=== PATIENT | female | born 1985 | race Asian ===

== ENCOUNTER 2019-03-25 16:23 | Observation (INO) | payer BC ==
[~2019-03-25] VITALS: Ht 160 cm; Wt 72.0 kg
--- NOTE | 2019-03-25 16:49 | NUR ---
PT AMBULATORY WITH STEADY GAIT FROM TRIAGE TO ROOM. CHANGING INTO GOWN NOW.
--- NOTE | 2019-03-25 16:58 | NUR ---
PT SENT HERE BY OBGYN DR. MEDRANO FOR ECTOPIC . THIS IS HER FIRST - WAS AT OFFICE FOR 8 WEEK CHECK UP. PT DENIES VAGINAL BLEEDING. AT THIS TIME PT DENIES SX- NO PAIN, NO NAUSEA, NO DIZZINESS. PT RESTING ON GURNEY. CONNECTED TO MONITOR. VSS. STATES FAMILY IS ON THEIR WAY.
--- NOTE | 2019-03-25 17:24 | NUR ---
PIV STARTED. BLOOD DRAWN AND SENT TO LAB.
[2019-03-25 17:35] LABS: ALBUMIN 4.1 g/dL (3.4-5.0); ANION GAP 5 mmol/L (5-15); BASOPHILS # (AUTO) 0.02 x10^3/uL (0-0.1); BASOPHILS % (AUTO) 0 % (0-1); CALCIUM 9.3 mg/dL (8.5-10.1); CHLORIDE 109 mmol/L (98-107); EOSINOPHILS # (AUTO) 0.06 x10^3/uL (0-0.4); EOSINOPHILS % (AUTO) 1 % (1-7); LYMPHOCYTES # (AUTO) 1.78 x10^3/uL (1-3.4); LYMPHOCYTES % (AUTO) 20 % (22-44); MD NO; MEAN CORPUSCULAR HEMOGLOBIN 29.5 pg (27.0-34.8); MEAN CORPUSCULAR HGB CONC 34.3 g/dL (32.4-35.8); MEAN CORPUSCULAR VOLUME 85.9 fL (80-100); MEAN PLATELET VOLUME 10.3 fL (7.4-10.4); MONOCYTES # (AUTO) 0.42 x10^3/uL (0.2-0.8); MONOCYTES % (AUTO) 5 % (2-9); NEUTROPHILS # (AUTO) 6.74 x10^3/uL (1.8-6.8); NEUTROPHILS % (AUTO) 75 % (42-75); PLATELET COUNT 213 x10^3/uL (130-400); RED BLOOD COUNT 4.94 x10^6/uL (3.82-5.3); RED CELL DISTRIBUTION WIDTH 13.1 % (9.6-15.2)
--- NOTE | 2019-03-25 17:58 | NUR ---
PT RESTING ON ZARINA. LIEN. VSS. DENIES NEEDS AT THIS TIME. AWARE OF POC.
--- NOTE | 2019-03-25 18:05 | NUR ---
REPORT GIVEN TO LILIA GARCIA.
[2019-03-25] MEDS ORDERED: MIDAZOLAM 1 MG/ML, 2ML ONE (18:44)
[2019-03-25] MEDS ORDERED: FENTANYL PF 100 MCG/2ML ONE (18:44)
--- NOTE | 2019-03-25 18:45 | NUR ---
REPORT RECEIVED FROM LILIA HUNTER.
[2019-03-25] MEDS ORDERED: BUPIVACAINE/PF 0.25% ONE (18:46)
[2019-03-25] MEDS ORDERED: EPINEPHRINE 1 MG/ML, 1ML ONE (18:46)
--- NOTE | 2019-03-25 18:46 | NUR ---
REPORT TO LILIA ARREOLA.
[2019-03-25] MEDS ORDERED: CEFAZOLIN 1,000 MG ONE (18:47)
[2019-03-25] MEDS ORDERED: NEOSTIGMINE 1 MG/ML, 10ML ONE (18:47)
[2019-03-25] MEDS ORDERED: DEXAMETHASONE 4 MG/ML, 1ML ONE (18:47)
[2019-03-25] MEDS ORDERED: ONDANSETRON 2MG/ML, 2ML ONE (18:47)
[2019-03-25] MEDS ORDERED: GLYCOPYRROLATE 0.2MG/1ML, 5ML ONE (18:47)
[2019-03-25] MEDS ORDERED: SUCCINYLCHOLINE 20 MG/ML, 10ML ONE (18:47)
[2019-03-25] MEDS ORDERED: ROCURONIUM 10MG/ML,5ML ONE (18:47)
[2019-03-25] MEDS ORDERED: PROPOFOL 10 MG/ML, 20ML ONE (18:47)
[2019-03-25] MEDS ORDERED: MEPERIDINE/PF 25MG/ML,1ML IVPush PRN (19:00)
[2019-03-25] MEDS ORDERED: LORazepam 2 MG/ML, 1ML IVPush PRN (19:00)
[2019-03-25] MEDS ORDERED: FENTANYL PF 100 MCG/2ML IV PRN (19:00)
[2019-03-25] MEDS ORDERED: ONDANSETRON ODT 8 MG PO PRN (19:00)
[2019-03-25] MEDS ORDERED: HYDROmorphone 2 MG/ML, 1ML IVPush PRN (19:00)
[2019-03-25] MEDS ORDERED: ONDANSETRON 2MG/ML, 2ML IV PRN (19:00)
[2019-03-25] MEDS ORDERED: PROMETHAZINE 25 MG/ML, 1ML IV PRN (19:00)
[2019-03-25] MEDS ORDERED: PROMETHAZINE 25 MG SUPP PR PRN (19:00)
[2019-03-25] MEDS ORDERED: OXYcodone 5 MG/5 ML ORAL.SOL UDC PO PRN (19:00)
[2019-03-25] MEDS ORDERED: ACETAMINOPHEN 325 MG TABLET PO PRN (19:00)
--- NOTE | 2019-03-25 19:06 | NUR ---
OR MD IN ROOM WITH PT AT THIS TIME.
--- NOTE | 2019-03-25 19:15 | NUR ---
PT RESTING ON GURSERJIO. PT TEARFUL SPEAKING WITH FAMILY. PT UPDATED ON POC.
[2019-03-25] MEDS ORDERED: SUGAMMADEX 200 MG/2 ML IVPush ONE (20:31)
[2019-03-25] MEDS ORDERED: KETOROLAC 30 MG/1 ML ONE (20:31)
[2019-03-25] MEDS ORDERED: MEPERIDINE/PF 25MG/ML,1ML ONE (20:53)
[2019-03-25 22:00] VITALS: BP 115/75
[2019-03-25] MEDS: LACTATED RINGERS 1,000 ML IV SCH (22:13)
[2019-03-25] MEDS ORDERED: OXYC-302 PO (22:38)
[2019-03-25] MEDS ORDERED: IBUP200T49 PO (22:39)
[2019-03-25] MEDS ORDERED: DOCU-131 PO (22:39)
[2019-03-25] MEDS ORDERED: OXYcodone/APAP 5/325MG TABLET PO PRN (23:00)
[2019-03-25] MEDS ORDERED: morphine SULFATE 10 MG/ML, 1ML IV PRN (23:00)
[2019-03-26 00:10] VITALS: BP 106/78
[2019-03-26 03:20] LABS: MEAN CORPUSCULAR HGB CONC 33.6 g/dL (32.4-35.8); MEAN CORPUSCULAR VOLUME 86.3 fL (80-100); MEAN PLATELET VOLUME 10.1 fL (7.4-10.4); PLATELET COUNT 194 x10^3/uL (130-400); RED BLOOD COUNT 4.76 x10^6/uL (3.82-5.3); RED CELL DISTRIBUTION WIDTH 12.9 % (9.6-15.2)
[2019-03-26 03:36] LABS: BASOPHILS % (AUTO) 0 % (0-1); EOSINOPHILS # (AUTO) 0.17 x10^3/uL (0-0.4); EOSINOPHILS % (AUTO) 1 % (1-7); LYMPHOCYTES % (AUTO) 7 % (22-44); MD SCAN; MONOCYTES # (AUTO) 0.11 x10^3/uL (0.2-0.8); MONOCYTES % (AUTO) 1 % (2-9); NEUTROPHILS # (AUTO) 10.91 x10^3/uL (1.8-6.8); NEUTROPHILS % (AUTO) 91 % (42-75)
[2019-03-26 04:51] VITALS: BP 99/66
[2019-03-26] MEDS: IBUPROFEN 600 MG TABLET PO SCH ×2 (06:00→10:47)
[2019-03-26] MEDS: LACTATED RINGERS 1,000 ML IV SCH (06:13)
[2019-03-26 07:38] VITALS: BP 100/62
[2019-03-26 10:38] VITALS: BP 107/68
== END 2019-03-26 11:05 | disposition home or self-care (01) ==
LOC: ED 17:41 → EDIP 17:55 → 4NE 22:00 → DCLOUNGE 03-26 10:57
PROVIDERS: ADMIT Obstetrics & Gynecology; ATTEND Obstetrics & Gynecology
DX: O00.90 Unspecified ectopic pregnancy without intrauterine pregnancy (principal); O34.81 Maternal care for other abnormalities of pelvic organs, first trimester; Z3A.01 Less than 8 weeks gestation of pregnancy
CPT/HCPCS: 36415; 59151; 80048; 82040; 84702; 85025; 86850; 86900; 88304; 99284; G0378; J0171; J0330; J0690; J1100; J1885; J2175; J2250; J2405; J2704; J2710; J3010; J3490; 88305

== ENCOUNTER 2019-06-18 21:26 | Emergency (ER) | payer BC ==
[~2019-06-18] VITALS: Ht 160 cm; Wt 68.1 kg
[~2019-06-18 21:26] MED LIST: DOCU-131 PO; IBUP200T49 PO; OXYC-302 PO
[2019-06-18 21:36] VITALS: BP 127/83
--- NOTE | 2019-06-18 21:55 | NUR ---
pleasant couple here noting history of ectopic , notes that they are currently trying to concieve, her LNMP 05/25/19, A0, notes today that she had some "discomfort" lower abd that has resolved and noted some spotting in her underwear and theya re concerned for possible reoocurrence of ectopic. Pt to bathroom at this time to provide urine specimen.
--- NOTE | 2019-06-18 22:08 | NUR ---
urine specimen collected and sent, lab to bedside for draw. Pleasant couple, pt remains NAD at this time
[2019-06-18 22:19] LABS: BASOPHILS # (AUTO) 0.03 x10^3/uL (0-0.1); BASOPHILS % (AUTO) 0 % (0-1); EOSINOPHILS # (AUTO) 0.08 x10^3/uL (0-0.4); EOSINOPHILS % (AUTO) 1 % (1-7); LYMPHOCYTES # (AUTO) 2.49 x10^3/uL (1-3.4); LYMPHOCYTES % (AUTO) 39 % (22-44); MD NO; MEAN CORPUSCULAR HEMOGLOBIN 29.2 pg (27.0-34.8); MEAN CORPUSCULAR HGB CONC 33.9 g/dL (32.4-35.8); MEAN PLATELET VOLUME 10.4 fL (7.4-10.4); MONOCYTES # (AUTO) 0.45 x10^3/uL (0.2-0.8); MONOCYTES % (AUTO) 7 % (2-9); NEUTROPHILS % (AUTO) 53 % (42-75); PLATELET COUNT 193 x10^3/uL (130-400); RED BLOOD COUNT 4.93 x10^6/uL (3.82-5.3); RED CELL DISTRIBUTION WIDTH 12.4 % (9.6-15.2)
[2019-06-18 22:26] LABS: ALBUMIN 3.8 g/dL (3.4-5.0); ANION GAP 5 mmol/L (5-15); CALCIUM 8.6 mg/dL (8.5-10.1); CHLORIDE 111 mmol/L (98-107); CREATININE 0.69 mg/dL (0.55-1.02)
[2019-06-18 22:34] LABS: MICROSCOPIC AUTO
[2019-06-18 22:37] LABS: CULTURE INDICATED? NO
== END 2019-06-18 23:32 | disposition home or self-care (01) ==
LOC: ED 22:07
DX: N94.6 Dysmenorrhea, unspecified (principal); R10.2 Pelvic and perineal pain; N93.9 Abnormal uterine and vaginal bleeding, unspecified; Z90.722 Acquired absence of ovaries, bilateral
CPT/HCPCS: 36415; 80048; 81001; 82040; 84703; 85025; 99283